=== PATIENT | female | born 1990 | race American Indian/Alaskan Native ===

== ENCOUNTER 2017-10-22 13:30 | Outpatient (CLI) | payer MEDICAID ==
[2017-10-22 14:45] LABS: Hematocrit 32.9 % (30.3-42.9); Hemoglobin 10.9 gm/dl (10.1-14.3); Mean Corpuscular HGB Conc 33 % (30-34); Mean Corpuscular Hemoglobin 29 pg (28-32); Mean Corpuscular Volume 87 fl (79-97); Platelet Count 301 K/mm3 (140-440); Red Blood Count 3.79 M/mm3 (3.65-5.03); Red Cell Distribution Width 14.2 % (13.2-15.2)
[2017-10-22 14:49] LABS: Bilirubin,Urine NEG (Negative); Blood,Urine NEG (Negative); Color,Urine Yellow (Yellow); Mucus,Urine FEW /HPF; Urobilinogen,Urine < 2.0 mg/dL (<2.0)
[2017-10-22 15:11] LABS: Alanine Aminotransferase 19 units/L (7-56); Uric Acid 5.3 mg/dL (3.5-7.6)
[2017-10-22 16:49] VITALS: BP 130/69
--- NOTE | 2017-10-22 20:25 | Ultrasound Report ---
FINAL REPORT EXAM: US OB LIMITED HISTORY: ALEKSANDRA; NON REACTIVE NST TECHNIQUE: Ultrasound biophysical profile PRIORS: None. FINDINGS: Single live intrauterine gestation is present with heart rate of 149 beats per minute Biophysical profile was performed respiratory motion 2 Body movement 2 tone 2 Amniotic fluid volume 2 Total 01/29 The amniotic fluid index is 20 centimeters Impression Normal biophysical profile 01/29
--- NOTE | 2017-10-22 20:26 | Ultrasound Report ---
FINAL REPORT EXAM: US OB BPP WO NON-STRESS HISTORY: ALEKSANDRA; NON REACTIVE NST TECHNIQUE: Ultrasound obstetrical limited PRIORS: None. FINDINGS: Single live intrauterine gestation present in cephalic presentation Amniotic fluid index is 20 centimeters cardiac activity is present with heart rate of 149 beats per minute IMPRESSION: Single intrauterine gestation cephalic position Normal amniotic fluid index 20 centimeters
== END 2017-10-22 17:15 | disposition home or self-care (01) ==
LOC: TRG 13:30
PROVIDERS: ATTEND Obstetrics & Gynecology
DX: O47.1 False labor at or after 37 completed weeks of gestation (principal); Z3A.37 37 weeks gestation of pregnancy
CPT/HCPCS: 36415; 59025; 76815; 76819; 81001; 82565; 83615; 84450; 84460; 84550; 85027

== ENCOUNTER 2017-11-14 17:58 | Inpatient (IN) | payer MEDICAID ==
[2017-11-14] MEDS ORDERED: PHENERGAN PR PRN (21:19)
[2017-11-14] MEDS ORDERED: MINERAL OIL PO PRN (21:19)
[2017-11-14] MEDS ORDERED: NUBAIN IV PRN (21:19)
[2017-11-14] MEDS ORDERED: ZOFRAN IV PRN (21:19)
[2017-11-14] MEDS ORDERED: STADOL IV PRN (21:19)
[2017-11-14] MEDS ORDERED: NARCAN 0.4 MG/1 ML IV PRN (21:19)
[2017-11-14] MEDS ORDERED: BRETHINE SUB-Q PRN (21:19)
[2017-11-14] MEDS ORDERED: XYLOCAINE 2% INFILTRATI ONE (21:19)
[2017-11-14] MEDS ORDERED: ePHEDrine SULFATE IV PRN (21:19)
[2017-11-14] MEDS ORDERED: BRETHINE IVP PRN (21:19)
[2017-11-14] MEDS ORDERED: CERVIDIL VG ONE (21:19)
[2017-11-14] MEDS ORDERED: PHENERGAN PO PRN (21:19)
--- NOTE | 2017-11-14 21:32 | History and Physical Report ---
History of Present Illness Date of examination: 11/14/17 Date of admission: 11/14/17 17:58 Chief complaint: Oligohydramnios, elevated BP's History of present illness: Patient presented to the office for routine visit, BP noted 140/90, and ALEKSANDRA 5.48 , vtx. She had a nml evaluation for PreE earlier this month Past History : 1 Para: 0 Past Medical History: Negative Past Medical History Past Surgical History: Negative Past Surgical History Past Medical History Surgery (Non-rug scratcher): Negative Past Surgical History Abnormal PAP: negative NORMA Exposure: negative Infertility: negative Uterine Anomaly: negative Uterine Surgery (not C/S): negative Other Gynecologic Problems: negative Infection History Hx of STD: none HIV Risk Eval: low risk Personal hx. of genital herpes: no Partner hx. of genital herpes: no Rash, Viral, or Febrile illness since last LMP? no Varicella/Chicken Pox Status: Previous Disease TB Risk: no Genetic History Congenital Heart Defect: Mom: no Dad: no Bradley Disease: Mom: no Dad: no Thalassemia Mom: no Dad: no Neural Tube Defect Mom: no Dad: no Down's Syndrome Mom: no Dad: no Dung-Sachs Mom: no Dad: no Sickle Cell Disease/Trait Mom: no Dad: no Hemophilia Mom: no Dad: no Muscular Dystrophy Mom: no Dad: no Cystic Fibrosis Mom: no Dad: no Derrick Chorea Mom: no Dad: no Mental Retardation Mom: no Dad: no Fragile X Mom: no Dad: no Other Genetic/Chromosomal Disorder Mom: no Dad: no Child w/other defect Mom: no Dad: no Comments/Counseling: pt's father has SCT+ Enviromental Exposures Xray Exposure: no Medication, drug, or alcohol use since LMP: no Chemical/Other Exposure: no Exposure to Cat Liter: no Hx of Parvovirus (Fifth Disease): no Occupational Exposure to Children: none Active Medications (reviewed today): None Current Allergies (reviewed today): No known allergies Past History - Obstetrical History Expected Date of Delivery: 11/08/17 Actual Gestation: 40 Week(s) 6 Day(s) : 1 Medications and Allergies Allergies Allergy/AdvReac Type Severity Reaction Status Date / Time pollen extracts Allergy Itching Verified 10/22/17 14:22 Review of Systems All systems: negative - Vital Signs Vital signs: Vital Signs Pulse Pulse Ox 96 H 98 11/14/17 18:28 11/14/17 18:28 Temp Pulse Resp BP Pulse Ox 99.2 F 93 H 18 183/100 99 11/14/17 20:10 11/14/17 21:29 11/14/17 20:10 11/14/17 21:21 11/14/17 21:29 - Physical Exam Breasts: Positive: deferred Lungs: Positive: Normal air movement Abdomen: Positive: other (obese). Negative: tenderness Genitourinary (Female): Positive: normal external genitalia, normal perenium Vulva: both: normal Uterus: Positive: enlarged. Negative: tender Extremities: Positive: edema (2+) Deep Tendon Reflex Grade: Normal but brisk +3 - Obstetrical FHR: category 2 Uterine Contraction Monitor Mode: External Cervical Dilatation: 0 Cervical Effacement Percentage: 0 station: -4, cephalic by US in office Results All other labs normal. Ultrasound: image reviewed (from office) Assessment and Plan - Patient Problems (1) 40 weeks gestation of Current Visit: Yes Status: Acute (2) Oligohydramnios Current Visit: Yes Status: Acute Qualifiers: Fetus number: single or unspecified fetus Plan to address problem: Serial induction explained, questions answered. She voiced understanding and agrees with plan of care (3) Elevated blood pressure affecting in third trimester, antepartum Current Visit: Yes Status: Acute (4) GBS carrier Current Visit: Yes Status: Acute
[2017-11-14 21:57] LABS: Hematocrit 33.4 % (30.3-42.9); Hemoglobin 11.1 gm/dl (10.1-14.3); Mean Corpuscular HGB Conc 33 % (30-34); Mean Corpuscular Hemoglobin 28 pg (28-32); Mean Corpuscular Volume 85 fl (79-97); Platelet Count 315 K/mm3 (140-440); Red Blood Count 3.93 M/mm3 (3.65-5.03); Red Cell Distribution Width 14.7 % (13.2-15.2)
[2017-11-14] MEDS ORDERED: LACTATED RINGERS 1,000 ML IV SCH (22:00)
[2017-11-14] MEDS ORDERED: PITOCin/NS 20 UNIT/1000ML DRIP 20 UNITS/1,000 ML BAG IV SCH (22:00)
[2017-11-15] MEDS: SUBLIMAZE IV PRN ×2 (04:38→08:15)
[2017-11-15] MEDS: LACTATED RINGERS 1,000 ML IV SCH ×2 (08:15→19:41)
--- NOTE | 2017-11-15 08:20 | Progress Note ---
Assessment and Plan A: IOL @ 41 weeks for oligo and elevated b/p, pre-e labs pending. Pt denies MCCALL, visual changes or epigastric pain. P: remove cervidil @ 11, if cat 1 and b/p NL may shower and eat regular lunch. Will reassess next step in serial IOL. Discussed serial IOL expectations with patient. - Patient Problems (1) 41 weeks gestation of Current Visit: Yes Status: Acute (2) Elevated blood pressure affecting in third trimester, antepartum Current Visit: Yes Status: Acute (3) GBS carrier Current Visit: Yes Status: Acute (4) Oligohydramnios Current Visit: Yes Status: Acute Qualifiers: Fetus number: single or unspecified fetus Subjective - Subjective Date of service: 11/15/17 Principal diagnosis: IUP @ 41+0, IOL for oligo, elevated b/p Patient reports: movement normal, contractions (cramping), no loss of fluid, no vaginal bleeding, no other (no MCCALL, visual changes or epigastric pain) Objective - Vital Signs Vital Signs: Vital Signs - 12hr 11/14/17 11/14/17 11/14/17 20:23 20:28 20:32 Temperature Pulse Rate 95 H 102 H 97 H Respiratory Rate Blood Pressure 151/96 O2 Sat by Pulse 99 99 Oximetry 11/14/17 11/14/17 11/14/17 20:33 20:38 20:43 Temperature Pulse Rate 93 H 102 H 101 H Respiratory Rate Blood Pressure O2 Sat by Pulse 99 98 98 Oximetry 11/14/17 11/14/17 11/14/17 20:48 20:53 20:58 Temperature Pulse Rate 89 102 H 91 H Respiratory Rate Blood Pressure O2 Sat by Pulse 99 98 98 Oximetry 11/14/17 11/14/17 11/14/17 21:03 21:08 21:13 Temperature Pulse Rate 95 H 112 H 105 H Respiratory Rate Blood Pressure O2 Sat by Pulse 98 99 97 Oximetry 11/14/17 11/14/17 11/14/17 21:19 21:21 21:24 Temperature Pulse Rate 107 H 93 H 101 H Respiratory Rate Blood Pressure 183/100 O2 Sat by Pulse 99 99 Oximetry 11/14/17 11/14/17 11/14/17 21:29 21:34 21:42 Temperature Pulse Rate 93 H 89 91 H Respiratory Rate Blood Pressure O2 Sat by Pulse 99 100 100 Oximetry 11/14/17 11/14/17 11/14/17 21:43 21:47 21:52 Temperature Pulse Rate 90 94 H 98 H Respiratory Rate Blood Pressure 159/93 149/76 O2 Sat by Pulse 100 100 Oximetry 11/14/17 11/14/17 11/14/17 21:57 22:02 22:07 Temperature Pulse Rate 102 H 99 H 94 H Respiratory Rate Blood Pressure O2 Sat by Pulse 100 100 100 Oximetry 11/14/17 11/14/17 11/14/17 22:08 22:12 22:17 Temperature Pulse Rate 93 H 91 H 99 H Respiratory Rate Blood Pressure 159/96 O2 Sat by Pulse 98 99 Oximetry 11/14/17 11/14/17 11/14/17 22:22 22:27 22:32 Temperature Pulse Rate 89 89 92 H Respiratory Rate Blood Pressure 172/82 O2 Sat by Pulse 99 100 100 Oximetry 11/14/17 11/14/17 11/14/17 22:37 22:38 22:42 Temperature Pulse Rate 92 H 87 90 Respiratory Rate Blood Pressure 176/90 O2 Sat by Pulse 99 100 Oximetry 11/14/17 11/14/17 11/14/17 22:47 23:51 23:56 Temperature Pulse Rate 97 H 95 H 86 Respiratory Rate Blood Pressure O2 Sat by Pulse 98 100 100 Oximetry 11/15/17 11/15/17 11/15/17 00:01 00:06 00:11 Temperature Pulse Rate 85 99 H 83 Respiratory Rate Blood Pressure O2 Sat by Pulse 100 100 100 Oximetry 11/15/17 11/15/17 11/15/17 00:16 00:21 00:26 Temperature Pulse Rate 102 H 82 84 Respiratory Rate Blood Pressure O2 Sat by Pulse 100 100 99 Oximetry 11/15/17 11/15/17 11/15/17 00:31 00:36 00:41 Temperature Pulse Rate 87 94 H 101 H Respiratory Rate Blood Pressure O2 Sat by Pulse 98 99 99 Oximetry 11/15/17 11/15/17 11/15/17 00:46 00:51 00:52 Temperature Pulse Rate 92 H 89 86 Respiratory Rate Blood Pressure 114/57 O2 Sat by Pulse 100 100 Oximetry 11/15/17 11/15/17 11/15/17 00:56 01:01 01:16 Temperature Pulse Rate 90 102 H 96 H Respiratory Rate Blood Pressure O2 Sat by Pulse 100 100 99 Oximetry 11/15/17 11/15/17 11/15/17 01:21 01:23 01:26 Temperature Pulse Rate 92 H 92 H 95 H Respiratory Rate Blood Pressure 157/86 O2 Sat by Pulse 99 100 Oximetry 11/15/17 11/15/17 11/15/17 01:31 01:36 01:41 Temperature Pulse Rate 92 H 93 H 100 H Respiratory Rate Blood Pressure O2 Sat by Pulse 99 100 99 Oximetry 11/15/17 11/15/17 11/15/17 01:46 01:51 02:03 Temperature Pulse Rate 99 H 109 H 98 H Respiratory Rate Blood Pressure O2 Sat by Pulse 100 99 100 Oximetry 11/15/17 11/15/17 11/15/17 02:08 02:13 02:18 Temperature Pulse Rate 91 H 98 H 92 H Respiratory Rate Blood Pressure O2 Sat by Pulse 100 100 100 Oximetry 11/15/17 11/15/17 11/15/17 02:23 02:28 02:33 Temperature Pulse Rate 98 H 105 H 104 H Respiratory Rate Blood Pressure O2 Sat by Pulse 99 100 100 Oximetry 11/15/17 11/15/17 11/15/17 02:38 02:43 02:48 Temperature Pulse Rate 95 H 92 H 95 H Respiratory Rate Blood Pressure O2 Sat by Pulse 100 100 100 Oximetry 11/15/17 11/15/17 11/15/17 02:53 02:58 03:03 Temperature Pulse Rate 93 H 101 H 100 H Respiratory Rate Blood Pressure O2 Sat by Pulse 100 100 100 Oximetry 11/15/17 11/15/17 11/15/17 03:07 03:19 03:24 Temperature Pulse Rate 91 H 90 96 H Respiratory Rate Blood Pressure 142/72 O2 Sat by Pulse 99 99 Oximetry 11/15/17 11/15/17 11/15/17 03:29 03:34 03:39 Temperature Pulse Rate 106 H 92 H 98 H Respiratory Rate Blood Pressure O2 Sat by Pulse 99 99 98 Oximetry 11/15/17 11/15/17 11/15/17 03:44 03:49 03:54 Temperature Pulse Rate 94 H 103 H 102 H Respiratory Rate Blood Pressure O2 Sat by Pulse 100 100 99 Oximetry 11/15/17 11/15/17 11/15/17 03:59 04:38 04:44 Temperature Pulse Rate 97 H 102 H Respiratory 18 Rate Blood Pressure O2 Sat by Pulse 99 99 Oximetry 11/15/17 11/15/17 11/15/17 04:49 04:54 04:59 Temperature Pulse Rate 109 H 95 H 101 H Respiratory Rate Blood Pressure O2 Sat by Pulse 97 98 99 Oximetry 11/15/17 11/15/17 11/15/17 05:04 05:06 05:09 Temperature Pulse Rate 93 H 98 H 99 H Respiratory Rate Blood Pressure 138/71 O2 Sat by Pulse 98 99 Oximetry 11/15/17 11/15/17 11/15/17 05:14 05:19 05:24 Temperature Pulse Rate 93 H 100 H 101 H Respiratory Rate Blood Pressure O2 Sat by Pulse 99 99 98 Oximetry 11/15/17 11/15/17 11/15/17 05:29 05:34 05:39 Temperature Pulse Rate 102 H 101 H 101 H Respiratory Rate Blood Pressure O2 Sat by Pulse 98 98 98 Oximetry 11/15/17 11/15/17 11/15/17 05:44 05:49 08:08 Temperature 99.0 F Pulse Rate 107 H 101 H Respiratory 18 Rate Blood Pressure O2 Sat by Pulse 99 99 Oximetry 11/15/17 08:11 Temperature Pulse Rate 110 H Respiratory Rate Blood Pressure 152/80 O2 Sat by Pulse Oximetry - Exam Breasts: normal Cardiovascular: Regular rate Lungs: Clear to auscultation, Normal air movement Abdomen: Present: normal appearance, soft Vulva: both: normal Uterus: Present: normal FHR: auscultation normal, category 1 Uterine Contraction Monitor Mode: External Uterine Contraction Pattern: Irregular Uterine Tone Measurement Phase: Resting Uterine Contraction Intensity: Mild Extremities: normal Deep Tendon Reflex Grade: Normal +2 - Labs Labs: Laboratory Results - last 24 hr 11/14/17 11/14/17 20:11 21:42 WBC 9.7 RBC 3.93 Hgb 11.1 Hct 33.4 MCV 85 MCH 28 MCHC 33 RDW 14.7 Plt Count 315 Blood Type O POSITIVE Antibody Screen Negative
[2017-11-15 08:31] LABS: Alanine Aminotransferase 23 units/L (7-56); Uric Acid 6.4 mg/dL (3.5-7.6)
--- NOTE | 2017-11-15 09:49 | Event Note ---
Date: 11/15/17 Tracing reviewed currently with acecels that are 10x10 after getting IV pain meds. pt having regular contractions but states they are not that painful. I d/ w serial IOL, failed IOL and need for c/s delivery. I also d/w need for c/s due to tracing not being reassring should that occur. Finally I d/w that her bps are labile but not persistently elevated and that her PIH labs are normal. At best she has gestational hypertension and treatment is delivery which we are doing. However, should be become persistently 160/105 range will proceed with magnesium and treated for pending per E. Pt expressed understanding and questions were addressed and answered. Cervidil to be removed between 10-11am. Will re evaluated at this time and proceed with serial IOL. 15 min spent at bedside discussing plan of care with pt.
[2017-11-15] MEDS ORDERED: POLYCILLIN/NS 2 GM/100 ML 2 GM/100 ML BAG IV ONE (10:00)
[2017-11-15 10:52] LABS: Bacteria,Urine 2+ /HPF (Negative); Bilirubin,Urine NEG (Negative); Blood,Urine SM (Negative); Color,Urine Yellow (Yellow); Hyaline Casts,Urine 2 /LPF; Mucus,Urine 1+ /HPF; Urobilinogen,Urine < 2.0 mg/dL (<2.0)
[2017-11-15 10:55] LABS: Protein,Urine >500 mg/dL (Negative)
--- NOTE | 2017-11-15 12:39 | Event Note ---
Date: 11/15/17 reviewed plan of care with patient and family, will do low dose pitocin today and plan to repeat cervidil tonight. pt sitting up with regular diet. all questions addressed. Dr. Treviño aware.
--- NOTE | 2017-11-15 12:53 | Event Note ---
Date: 11/15/17 Pt noted to have >500 on the UA this combined with the elevation in blood pressures gives dx of mild pre E. Will plan to start magnesium when pt is in active labor or if bp consistently > 160/105. Will advise pt of new dx and plan of care.
[2017-11-15] MEDS: PITOCin/NS 30 UNIT/500ML 30 UNITS/500 ML BAG IV SCH ×3 (14:00→14:55)
[2017-11-15] MEDS ORDERED: AMPICILLIN/NS 1 GM/50 ML 1 GM/50 ML BAG IV SCH (14:00)
--- NOTE | 2017-11-15 17:59 | Progress Note ---
Assessment and Plan no ctx/cramping with pitocin. Will d/c, allow dinner and replace cervidil tonight. Plan of care reviewed with patient.opportunity for questions provided, all questions addressed. - Patient Problems (1) 41 weeks gestation of Current Visit: Yes Status: Acute (2) Elevated blood pressure affecting in third trimester, antepartum Current Visit: No Status: Acute (3) GBS carrier Current Visit: Yes Status: Acute (4) Oligohydramnios Current Visit: Yes Status: Acute Qualifiers: Fetus number: single or unspecified fetus Subjective - Subjective Date of service: 11/15/17 Principal diagnosis: IUP @ 41+0, IOL for oligo, elevated b/p Patient reports: movement normal, contractions (cramping), no loss of fluid, no vaginal bleeding, no other (no MCCALL, visual changes or epigastric pain) Objective - Vital Signs Vital Signs: Vital Signs - 12hr 11/15/17 11/15/17 11/15/17 08:08 08:11 09:07 Temperature 99.0 F Pulse Rate 110 H 105 H Respiratory 18 Rate Blood Pressure 152/80 146/78 O2 Sat by Pulse Oximetry 11/15/17 11/15/17 11/15/17 10:07 10:39 11:06 Temperature Pulse Rate 110 H 107 H 108 H Respiratory Rate Blood Pressure 187/86 141/77 149/74 O2 Sat by Pulse Oximetry 11/15/17 11/15/17 11/15/17 14:21 14:26 14:31 Temperature Pulse Rate 90 99 H 94 H Respiratory Rate Blood Pressure 144/71 O2 Sat by Pulse 99 98 98 Oximetry 11/15/17 11/15/17 11/15/17 14:36 14:41 14:46 Temperature Pulse Rate 92 H 91 H 93 H Respiratory Rate Blood Pressure O2 Sat by Pulse 98 99 97 Oximetry 11/15/17 11/15/17 11/15/17 14:51 14:56 15:01 Temperature Pulse Rate 95 H 94 H 90 Respiratory Rate Blood Pressure 122/60 O2 Sat by Pulse 98 97 97 Oximetry 11/15/17 11/15/17 11/15/17 15:06 15:11 15:16 Temperature Pulse Rate 91 H 92 H 99 H Respiratory Rate Blood Pressure O2 Sat by Pulse 97 98 99 Oximetry 11/15/17 11/15/17 11/15/17 15:21 15:26 15:36 Temperature Pulse Rate 91 H 91 H 98 H Respiratory Rate Blood Pressure O2 Sat by Pulse 99 97 99 Oximetry 11/15/17 11/15/17 11/15/17 15:41 15:46 15:51 Temperature Pulse Rate 102 H 88 90 Respiratory Rate Blood Pressure O2 Sat by Pulse 98 98 98 Oximetry 11/15/17 11/15/17 11/15/17 15:52 15:56 16:01 Temperature Pulse Rate 86 88 95 H Respiratory Rate Blood Pressure 141/74 O2 Sat by Pulse 99 99 Oximetry 11/15/17 11/15/17 11/15/17 16:06 16:11 16:16 Temperature Pulse Rate 103 H 88 94 H Respiratory Rate Blood Pressure O2 Sat by Pulse 99 98 99 Oximetry 11/15/17 11/15/17 11/15/17 16:21 16:26 16:31 Temperature Pulse Rate 105 H 97 H 105 H Respiratory Rate Blood Pressure 141/77 O2 Sat by Pulse 99 99 98 Oximetry 11/15/17 11/15/17 11/15/17 16:36 16:41 16:46 Temperature Pulse Rate 95 H 113 H 99 H Respiratory Rate Blood Pressure O2 Sat by Pulse 99 99 98 Oximetry 11/15/17 11/15/17 11/15/17 16:51 16:52 16:56 Temperature Pulse Rate 102 H 93 H 97 H Respiratory Rate Blood Pressure 153/105 O2 Sat by Pulse 99 99 Oximetry 11/15/17 11/15/17 11/15/17 17:01 17:06 17:11 Temperature Pulse Rate 97 H 99 H 96 H Respiratory Rate Blood Pressure O2 Sat by Pulse 99 99 99 Oximetry 11/15/17 11/15/17 11/15/17 17:16 17:21 17:26 Temperature Pulse Rate 100 H 101 H 94 H Respiratory Rate Blood Pressure 154/72 O2 Sat by Pulse 99 99 99 Oximetry 11/15/17 11/15/17 11/15/17 17:31 17:36 17:41 Temperature Pulse Rate 104 H 86 96 H Respiratory Rate Blood Pressure O2 Sat by Pulse 99 99 99 Oximetry 11/15/17 11/15/17 11/15/17 17:46 17:51 17:56 Temperature Pulse Rate 93 H 86 99 H Respiratory Rate Blood Pressure 162/98 O2 Sat by Pulse 98 99 99 Oximetry - Exam Breasts: normal Cardiovascular: Regular rate Lungs: Clear to auscultation Abdomen: Present: normal appearance, soft Vulva: both: normal Uterus: Present: normal FHR: auscultation normal, category 1 Uterine Contraction Monitor Mode: External Cervical Dilatation: 0 Cervical Effacement Percentage: 0 station: -3 Uterine Contraction Pattern: Absent Uterine Tone Measurement Phase: Resting - Labs Labs: Abnormal Labs 11/15/17 11/15/17 07:45 10:25 Creatinine 0.5 L Lactate Dehydrogenase 201 H Urine WBC (Auto) 19.0 H U Epithel Cells (Auto) 23.0 H Laboratory Results - last 24 hr 11/14/17 11/14/17 11/14/17 20:11 21:42 21:42 WBC 9.7 RBC 3.93 Hgb 11.1 Hct 33.4 MCV 85 MCH 28 MCHC 33 RDW 14.7 Plt Count 315 Creatinine Estimated GFR Uric Acid AST ALT Lactate Dehydrogenase Urine Color Urine Turbidity Urine pH Ur Specific [place] Urine Protein Urine Glucose (UA) Urine Ketones Urine Blood Urine Nitrite Urine Bilirubin Urine Urobilinogen Ur Leukocyte Esterase Urine WBC (Auto) Urine RBC (Auto) U Epithel Cells (Auto) Urine Bacteria (Auto) Hyaline Casts Urine Mucus Urine Yeast (Budding) RPR Nonreactive Blood Type O POSITIVE Antibody Screen Negative 11/15/17 11/15/17 07:45 10:25 WBC RBC Hgb Hct MCV MCH MCHC RDW Plt Count Creatinine 0.5 L Estimated GFR > 60 Uric Acid 6.4 AST 28 ALT 23 Lactate Dehydrogenase 201 H Urine Color Yellow Urine Turbidity Cloudy Urine pH 5.0 Ur Specific [place] 1.025 Urine Protein >500 Urine Glucose (UA) Neg Urine Ketones Neg Urine Blood Sm Urine Nitrite Neg Urine Bilirubin Neg Urine Urobilinogen < 2.0 Ur Leukocyte Esterase Sm Urine WBC (Auto) 19.0 H Urine RBC (Auto) 11.0 U Epithel Cells (Auto) 23.0 H Urine Bacteria (Auto) 2+ Hyaline Casts 2 Urine Mucus 1+ Urine Yeast (Budding) 2+ RPR Blood Type Antibody Screen
[2017-11-15] MEDS ORDERED: CERVIDIL VG NR (18:02)
[2017-11-15] MEDS ORDERED: AMBIEN PO PRN (20:57)
[2017-11-15] MEDS ORDERED: CERVIDIL VG ONE (21:05)
[2017-11-16] MEDS: SUBLIMAZE IV PRN (02:21)
[2017-11-16] MEDS: LACTATED RINGERS 1,000 ML IV SCH ×2 (04:14→12:38)
[2017-11-16] MEDS ORDERED: MAGNESIUM SULFATE 4GM/100ML 4 GM/100 ML BAG IV ONE (06:50)
[2017-11-16] MEDS ORDERED: APRESOLINE IV ONE ×2 (06:59→23:19)
--- NOTE | 2017-11-16 07:22 | Progress Note ---
<MONA KRAUSE - Last Filed: 11/16/17 07:17> Assessment and Plan 27yo @ 41w1d here for IOL 3rd day. Cervidil removed. MGSO4 started. Will start pitocin per protocol. Schofield placed Strict I&O. All orders in EMR - Patient Problems (1) 41 weeks gestation of Onset Date: ~11/16/17 Current Visit: Yes Status: Acute Plan to address problem: Cervidil removed. Will start pitocin per protocol. Discussed POC with pt, reviewed nature of serial IOL, and possibility of section. All questions were addressed and answered. aware of pt. (2) Pre-eclampsia Onset Date: ~11/16/17 Current Visit: Yes Status: Acute Qualifiers: Trimester: third trimester Qualified Code(s): O14.93 - Unspecified pre- eclampsia, third trimester Plan to address problem: Noted BP trending up Discussed POC with . Will start MGSO4. Orders in EMR. Pt aware of plan All questions addressed. Subjective - Subjective Date of service: 11/16/17 Principal diagnosis: IUP @ 41+1, IOL for oligo, elevated b/p Patient reports: movement normal, contractions (cramping), no loss of fluid, no vaginal bleeding, no other (no MCCALL, visual changes or epigastric pain) Objective - Vital Signs Vital Signs: Vital Signs - 12hr 11/15/17 11/15/17 11/15/17 20:40 21:05 21:43 Pulse Rate 100 H 90 100 H Blood Pressure 166/91 123/74 139/67 O2 Sat by Pulse Oximetry 11/15/17 11/16/17 11/16/17 23:52 00:27 00:28 Pulse Rate 86 96 H 99 H Blood Pressure 164/88 153/91 O2 Sat by Pulse 98 Oximetry 11/16/17 11/16/17 11/16/17 00:33 00:38 00:43 Pulse Rate 93 H 90 97 H Blood Pressure O2 Sat by Pulse 99 100 100 Oximetry 11/16/17 11/16/17 11/16/17 00:48 00:53 00:58 Pulse Rate 96 H 96 H 94 H Blood Pressure O2 Sat by Pulse 100 100 100 Oximetry 11/16/17 11/16/17 11/16/17 01:03 01:08 01:13 Pulse Rate 98 H 100 H 111 H Blood Pressure O2 Sat by Pulse 100 100 100 Oximetry 11/16/17 11/16/17 11/16/17 01:15 01:18 01:23 Pulse Rate 114 H 99 H 111 H Blood Pressure 132/86 O2 Sat by Pulse 100 100 Oximetry 11/16/17 11/16/17 11/16/17 01:28 01:33 01:34 Pulse Rate 96 H 102 H 95 H Blood Pressure O2 Sat by Pulse 100 100 66 L Oximetry 11/16/17 11/16/17 11/16/17 01:38 01:43 02:18 Pulse Rate 108 H 106 H 103 H Blood Pressure 154/70 O2 Sat by Pulse 99 100 Oximetry 11/16/17 11/16/17 11/16/17 02:43 02:45 04:15 Pulse Rate 102 H 97 H 100 H Blood Pressure 147/82 148/81 173/94 O2 Sat by Pulse Oximetry 11/16/17 11/16/17 11/16/17 04:23 04:28 04:33 Pulse Rate 95 H 103 H 104 H Blood Pressure O2 Sat by Pulse 98 97 100 Oximetry 11/16/17 11/16/17 11/16/17 04:38 05:48 05:55 Pulse Rate 95 H 109 H 107 H Blood Pressure 144/85 149/105 O2 Sat by Pulse 100 Oximetry - Exam Breasts: deferred Cardiovascular: Regular rate Lungs: Normal air movement Abdomen: Present: normal appearance, soft, normal bowel sounds. Absent: distention, tenderness Uterus: Present: normal FHR: auscultation normal, category 1 (minimal variability) Uterine Contraction Monitor Mode: External Cervical Dilatation: 0 (soft) Cervical Effacement Percentage: 0 station: -3 Uterine Contraction Pattern: Irregular Uterine Tone Measurement Phase: Resting Uterine Contraction Intensity: Mild Extremities: edema Deep Tendon Reflex Grade: Normal +2 - Labs Labs: Abnormal Labs 11/15/17 11/15/17 07:45 10:25 Creatinine 0.5 L Lactate Dehydrogenase 201 H Urine WBC (Auto) 19.0 H U Epithel Cells (Auto) 23.0 H Laboratory Results - last 24 hr 11/14/17 11/15/17 11/15/17 21:42 07:45 10:25 Creatinine 0.5 L Estimated GFR > 60 Uric Acid 6.4 AST 28 ALT 23 Lactate Dehydrogenase 201 H Urine Color Yellow Urine Turbidity Cloudy Urine pH 5.0 Ur Specific [place] 1.025 Urine Protein >500 Urine Glucose (UA) Neg Urine Ketones Neg Urine Blood Sm Urine Nitrite Neg Urine Bilirubin Neg Urine Urobilinogen < 2.0 Ur Leukocyte Esterase Sm Urine WBC (Auto) 19.0 H Urine RBC (Auto) 11.0 U Epithel Cells (Auto) 23.0 H Urine Bacteria (Auto) 2+ Hyaline Casts 2 Urine Mucus 1+ Urine Yeast (Budding) 2+ RPR Nonreactive <THERON JO - Last Filed: 11/16/17 10:18> Assessment and Plan She's received cervidil x2, this is day 2 of pitocin. Good UO. Continue close observation and IOL. 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 Objective - Vital Signs Vital Signs: Vital Signs - 12hr 11/15/17 11/16/17 11/16/17 23:52 00:27 00:28 Pulse Rate 86 96 H 99 H Blood Pressure 164/88 153/91 O2 Sat by Pulse 98 Oximetry 11/16/17 11/16/17 11/16/17 00:33 00:38 00:43 Pulse Rate 93 H 90 97 H Blood Pressure O2 Sat by Pulse 99 100 100 Oximetry 11/16/17 11/16/17 11/16/17 00:48 00:53 00:58 Pulse Rate 96 H 96 H 94 H Blood Pressure O2 Sat by Pulse 100 100 100 Oximetry 11/16/17 11/16/17 11/16/17 01:03 01:08 01:13 Pulse Rate 98 H 100 H 111 H Blood Pressure O2 Sat by Pulse 100 100 100 Oximetry 11/16/17 11/16/17 11/16/17 01:15 01:18 01:23 Pulse Rate 114 H 99 H 111 H Blood Pressure 132/86 O2 Sat by Pulse 100 100 Oximetry 11/16/17 11/16/17 11/16/17 01:28 01:33 01:34 Pulse Rate 96 H 102 H 95 H Blood Pressure O2 Sat by Pulse 100 100 66 L Oximetry 11/16/17 11/16/17 11/16/17 01:38 01:43 02:18 Pulse Rate 108 H 106 H 103 H Blood Pressure 154/70 O2 Sat by Pulse 99 100 Oximetry 11/16/17 11/16/17 11/16/17 02:43 02:45 04:15 Pulse Rate 102 H 97 H 100 H Blood Pressure 147/82 148/81 173/94 O2 Sat by Pulse Oximetry 11/16/17 11/16/17 11/16/17 04:23 04:28 04:33 Pulse Rate 95 H 103 H 104 H Blood Pressure O2 Sat by Pulse 98 97 100 Oximetry 11/16/17 11/16/17 11/16/17 04:38 05:48 05:55 Pulse Rate 95 H 109 H 107 H Blood Pressure 144/85 149/105 O2 Sat by Pulse 100 Oximetry 11/16/17 11/16/17 11/16/17 07:24 07:55 08:14 Pulse Rate 104 H 110 H 101 H Blood Pressure 148/97 158/74 147/92 O2 Sat by Pulse Oximetry 11/16/17 11/16/17 11/16/17 08:54 09:40 10:01 Pulse Rate 101 H 104 H 96 H Blood Pressure 143/81 172/92 O2 Sat by Pulse 99 Oximetry 11/16/17 10:06 Pulse Rate 101 H Blood Pressure O2 Sat by Pulse 98 Oximetry - Exam Lungs: Clear to auscultation, Normal air movement - Labs Labs: Abnormal Labs 11/15/17 11/15/17 07:45 10:25 Creatinine 0.5 L Lactate Dehydrogenase 201 H Urine WBC (Auto) 19.0 H U Epithel Cells (Auto) 23.0 H Laboratory Results - last 24 hr 11/14/17 11/15/17 21:42 10:25 Urine Color Yellow Urine Turbidity Cloudy Urine pH 5.0 Ur Specific [place] 1.025 Urine Protein >500 Urine Glucose (UA) Neg Urine Ketones Neg Urine Blood Sm Urine Nitrite Neg Urine Bilirubin Neg Urine Urobilinogen < 2.0 Ur Leukocyte Esterase Sm Urine WBC (Auto) 19.0 H Urine RBC (Auto) 11.0 U Epithel Cells (Auto) 23.0 H Urine Bacteria (Auto) 2+ Hyaline Casts 2 Urine Mucus 1+ Urine Yeast (Budding) 2+ RPR Nonreactive
[2017-11-16] MEDS ORDERED: PITOCin/NS 30 UNIT/500ML 30 UNITS/500 ML BAG IV SCH (08:00)
[2017-11-16] MEDS: MAGNESIUM SULFATE 40GM/1000ML 40 GM/1,000 ML BAG IV SCH (08:16)
--- NOTE | 2017-11-16 15:37 | Event Note ---
Date: 11/16/17 (second day of pitocin) pt has been on 20mu pitocin today. ctx irreg pattern. pt has been sleeping. Cat 1 FHT. BP 150-140/80-70. MGSO4 continues 2 gm/hr. Consulted with Dr Benjamin Will stop pitocin @ 1700. Allow dinner. PM care Then low dose pitocin overnight. RN aware of plan. Orders in EMR.
[2017-11-16] MEDS: PITOCin/NS 30 UNIT/500ML 30 UNITS/500 ML BAG IV SCH ×3 (20:00→23:22)
[2017-11-16] MEDS ORDERED: TYLENOL PO PRN (23:21)
[2017-11-17] MEDS: PITOCin/NS 30 UNIT/500ML 30 UNITS/500 ML BAG IV SCH (02:07)
--- NOTE | 2017-11-17 05:01 | Progress Note ---
Assessment and Plan - Patient Problems (1) 41 weeks gestation of Onset Date: ~11/16/17 Current Visit: Yes Status: Acute Plan to address problem: Variable decels noted on strip. Pitocin off Pt sleeping soundly on her left side. Easily awaken. SVE closed, thick, OOP. Explained findings and concerns to pt. Made NPO for possible section this AM. Pt voiced understanding. aware of findings. (2) Pre-eclampsia Onset Date: ~11/16/17 Current Visit: Yes Status: Acute Qualifiers: Trimester: third trimester Qualified Code(s): O14.93 - Unspecified pre- eclampsia, third trimester Plan to address problem: BP 180/82 second dose of Hydralizine given. Subjective - Subjective Date of service: 11/17/17 (variable decels noted on strip) Principal diagnosis: IUP @ 41+2, IOL for oligo, elevated b/p Patient reports: movement normal, contractions (cramping), no loss of fluid, no vaginal bleeding, no other (no MCCALL, visual changes or epigastric pain) Objective - Vital Signs Vital Signs: Vital Signs - 12hr 11/16/17 11/16/17 11/16/17 17:14 17:22 17:54 Temperature 97.8 F Pulse Rate 100 H 103 H 109 H Respiratory 18 Rate Blood Pressure 154/81 150/82 Blood Pressure 154/81 [Left] O2 Sat by Pulse Oximetry 11/16/17 11/16/17 11/16/17 18:47 18:48 18:51 Temperature Pulse Rate 105 H 100 H 104 H Respiratory Rate Blood Pressure 171/90 168/91 Blood Pressure [Left] O2 Sat by Pulse 98 Oximetry 11/16/17 11/16/17 11/16/17 18:52 18:57 19:02 Temperature Pulse Rate 104 H 109 H 115 H Respiratory Rate Blood Pressure Blood Pressure [Left] O2 Sat by Pulse 97 97 98 Oximetry 11/16/17 11/16/17 11/16/17 19:07 19:12 19:17 Temperature Pulse Rate 113 H 116 H 115 H Respiratory Rate Blood Pressure Blood Pressure [Left] O2 Sat by Pulse 98 98 97 Oximetry 11/16/17 11/16/17 11/16/17 19:22 19:26 19:27 Temperature Pulse Rate 111 H 116 H 120 H Respiratory Rate Blood Pressure 160/104 Blood Pressure [Left] O2 Sat by Pulse 98 98 Oximetry 11/16/17 11/16/17 11/16/17 19:32 19:35 19:37 Temperature Pulse Rate 112 H 109 H 111 H Respiratory Rate Blood Pressure 169/80 Blood Pressure [Left] O2 Sat by Pulse 98 97 Oximetry 11/16/17 11/16/17 11/16/17 19:42 19:47 19:52 Temperature Pulse Rate 116 H 114 H 105 H Respiratory Rate Blood Pressure Blood Pressure [Left] O2 Sat by Pulse 98 98 98 Oximetry 11/16/17 11/16/17 11/16/17 19:57 20:00 20:02 Temperature 98.3 F Pulse Rate 114 H 104 H 117 H Respiratory 18 Rate Blood Pressure Blood Pressure 161/98 [Left] O2 Sat by Pulse 97 98 97 Oximetry 11/16/17 11/16/17 11/16/17 20:07 20:10 20:12 Temperature Pulse Rate 109 H 104 H 113 H Respiratory Rate Blood Pressure 161/98 Blood Pressure [Left] O2 Sat by Pulse 98 97 Oximetry 11/16/17 11/16/17 11/16/17 21:45 21:46 21:51 Temperature Pulse Rate 105 H 105 H 109 H Respiratory Rate Blood Pressure 170/84 Blood Pressure 170/84 [Left] O2 Sat by Pulse 97 97 Oximetry 11/16/17 11/16/17 11/16/17 21:56 22:01 22:06 Temperature Pulse Rate 108 H 105 H 108 H Respiratory Rate Blood Pressure Blood Pressure [Left] O2 Sat by Pulse 97 97 97 Oximetry 11/16/17 11/16/17 11/16/17 22:11 22:16 22:21 Temperature Pulse Rate 110 H 106 H 110 H Respiratory Rate Blood Pressure Blood Pressure [Left] O2 Sat by Pulse 97 98 96 Oximetry 11/16/17 11/16/17 11/16/17 22:24 22:26 22:31 Temperature Pulse Rate 107 H 107 H 104 H Respiratory Rate Blood Pressure 146/87 Blood Pressure [Left] O2 Sat by Pulse 93 97 97 Oximetry 11/16/17 11/16/17 11/16/17 22:51 22:56 23:01 Temperature Pulse Rate 103 H 101 H 104 H Respiratory Rate Blood Pressure Blood Pressure [Left] O2 Sat by Pulse 98 98 96 Oximetry 11/16/17 11/16/17 11/16/17 23:06 23:09 23:11 Temperature Pulse Rate 96 H 104 H 104 H Respiratory Rate Blood Pressure 171/88 Blood Pressure [Left] O2 Sat by Pulse 97 98 Oximetry 11/16/17 11/16/17 11/16/17 23:16 23:21 23:26 Temperature Pulse Rate 105 H 104 H 99 H Respiratory Rate Blood Pressure Blood Pressure [Left] O2 Sat by Pulse 98 98 98 Oximetry 11/16/17 11/16/17 11/17/17 23:31 23:36 00:00 Temperature Pulse Rate 102 H 98 H 98 H Respiratory Rate Blood Pressure 145/76 Blood Pressure 145/76 [Left] O2 Sat by Pulse 98 98 Oximetry 11/17/17 11/17/17 11/17/17 00:26 00:37 01:38 Temperature Pulse Rate 106 H 90 95 H Respiratory 18 Rate Blood Pressure 162/84 174/90 Blood Pressure 162/84 174/90 [Left] O2 Sat by Pulse 99 Oximetry 11/17/17 11/17/17 11/17/17 02:06 02:36 03:36 Temperature Pulse Rate 95 H 109 H 94 H Respiratory 18 18 Rate Blood Pressure 151/91 145/95 168/91 Blood Pressure 151/91 145/95 [Left] O2 Sat by Pulse Oximetry 11/17/17 11/17/17 04:06 04:37 Temperature Pulse Rate 94 H 94 H Respiratory Rate Blood Pressure 146/82 180/82 Blood Pressure [Left] O2 Sat by Pulse Oximetry - Exam Breasts: deferred Cardiovascular: Regular rate Lungs: Normal air movement Abdomen: Present: normal appearance, soft. Absent: distention, tenderness Uterus: Present: normal FHR: auscultation normal, category 2 (variables) Uterine Contraction Monitor Mode: External Cervical Dilatation: 0 Cervical Effacement Percentage: 0 station: -3 Uterine Contraction Pattern: Irregular Uterine Tone Measurement Phase: Resting Uterine Contraction Intensity: Mild Extremities: edema Deep Tendon Reflex Grade: Normal +2 - Labs Labs: Abnormal Labs 11/15/17 11/15/17 11/16/17 07:45 10:25 14:56 Creatinine 0.5 L Magnesium 4.00 H Lactate Dehydrogenase 201 H Urine WBC (Auto) 19.0 H U Epithel Cells (Auto) 23.0 H 11/16/17 11/17/17 21:38 02:59 Creatinine Magnesium 4.40 H 4.70 H Lactate Dehydrogenase Urine WBC (Auto) U Epithel Cells (Auto) Laboratory Results - last 24 hr 11/16/17 11/16/17 11/17/17 14:56 21:38 02:59 Magnesium 4.00 H 4.40 H 4.70 H
[2017-11-17] MEDS ORDERED: DEEP SEA NS PRN (05:02)
[2017-11-17] MEDS ORDERED: ZOFRAN IV PRN (06:18)
[2017-11-17] MEDS ORDERED: DILAUDID IV PRN ×2 (06:18)
--- NOTE | 2017-11-17 06:21 | Anesthesia Day of Surgery ---
Anesthesia Day of Surgery - Day of Surgery Patient Examined: Yes Patient H&P Reviewed: Yes Patient is NPO: Yes
--- NOTE | 2017-11-17 06:21 | Anesthesia Consultation ---
Anesthesia Consult and Med Hx Date of service: 11/17/17 - Airway Anesthetic Teeth Evaluation: Good ROM Head & Neck: Adequate Mental/Hyoid Distance: Adequate Mallampati Class: Class II - Pulmonary Exam CTA: Yes - Cardiac Exam Cardiac Exam: RRR - Pre-Operative Health Status ASA Pre-Surgery Classification: ASA3, Emergency Proposed Anesthetic Plan: Epidural, Spinal - Pulmonary Hx Asthma: No COPD: No Hx Pneumonia: No - Cardiovascular System Hx Hypertension: No - Central Nervous System Hx Seizures: No Hx Psychiatric Problems: No - Endocrine Hx Renal Disease: No Hx End Stage Renal Disease: No Hx Hypothyroidism: No Hx Hyperthyroidism: No - Hematic Hx Anemia: No Hx Sickle Cell Disease: No - Other Systems Hx Alcohol Use: No
--- NOTE | 2017-11-17 06:28 | Progress Note ---
Assessment and Plan - Patient Problems (1) 40 weeks gestation of Current Visit: Yes Status: Acute (2) Oligohydramnios Current Visit: Yes Status: Acute Qualifiers: Fetus number: single or unspecified fetus (3) Pre-eclampsia Onset Date: ~11/16/17 Current Visit: Yes Status: Acute Qualifiers: Trimester: third trimester Qualified Code(s): O14.93 - Unspecified pre- eclampsia, third trimester Plan to address problem: Worsening (4) GBS carrier Current Visit: Yes Status: Acute (5) Failed induction Current Visit: Yes Status: Acute Qualifiers: Failed induction of labor type: other Qualified Code(s): O61.8 - Other failed induction of labor Plan to address problem: Now with worsening PreE and change in baseline, concern for professing placental insufficiency, remote from delivery, recommend proceed with C/S. Findings, concerns, options and risks were discussed patient, Questions were encouraged and answered, consents reviewed and signed, she voiced understanding and agrees to proceed with delivery. Subjective - Subjective Date of service: 11/17/17 Principal diagnosis: IUP @ 41+2, IOL for oligo, Preeclampsia Interval history: Still no cervical change, day 3 IOL. Decelerations noted, she''s required 2 dose of hydralazine now with what appears to be a change in FHT's baseline. Patient reports: movement normal, contractions (cramping), no loss of fluid, no vaginal bleeding, no other (no MCCALL, visual changes or epigastric pain) Objective - Vital Signs Vital Signs: Vital Signs - 12hr 11/16/17 11/16/17 11/16/17 18:47 18:48 18:51 Temperature Pulse Rate 105 H 100 H 104 H Respiratory Rate Blood Pressure 171/90 168/91 Blood Pressure [Left] O2 Sat by Pulse 98 Oximetry 11/16/17 11/16/17 11/16/17 18:52 18:57 19:02 Temperature Pulse Rate 104 H 109 H 115 H Respiratory Rate Blood Pressure Blood Pressure [Left] O2 Sat by Pulse 97 97 98 Oximetry 11/16/17 11/16/17 11/16/17 19:07 19:12 19:17 Temperature Pulse Rate 113 H 116 H 115 H Respiratory Rate Blood Pressure Blood Pressure [Left] O2 Sat by Pulse 98 98 97 Oximetry 11/16/17 11/16/17 11/16/17 19:22 19:26 19:27 Temperature Pulse Rate 111 H 116 H 120 H Respiratory Rate Blood Pressure 160/104 Blood Pressure [Left] O2 Sat by Pulse 98 98 Oximetry 11/16/17 11/16/17 11/16/17 19:32 19:35 19:37 Temperature Pulse Rate 112 H 109 H 111 H Respiratory Rate Blood Pressure 169/80 Blood Pressure [Left] O2 Sat by Pulse 98 97 Oximetry 11/16/17 11/16/17 11/16/17 19:42 19:47 19:52 Temperature Pulse Rate 116 H 114 H 105 H Respiratory Rate Blood Pressure Blood Pressure [Left] O2 Sat by Pulse 98 98 98 Oximetry 11/16/17 11/16/17 11/16/17 19:57 20:00 20:02 Temperature 98.3 F Pulse Rate 114 H 104 H 117 H Respiratory 18 Rate Blood Pressure Blood Pressure 161/98 [Left] O2 Sat by Pulse 97 98 97 Oximetry 11/16/17 11/16/17 11/16/17 20:07 20:10 20:12 Temperature Pulse Rate 109 H 104 H 113 H Respiratory Rate Blood Pressure 161/98 Blood Pressure [Left] O2 Sat by Pulse 98 97 Oximetry 11/16/17 11/16/17 11/16/17 21:45 21:46 21:51 Temperature Pulse Rate 105 H 105 H 109 H Respiratory Rate Blood Pressure 170/84 Blood Pressure 170/84 [Left] O2 Sat by Pulse 97 97 Oximetry 11/16/17 11/16/17 11/16/17 21:56 22:01 22:06 Temperature Pulse Rate 108 H 105 H 108 H Respiratory Rate Blood Pressure Blood Pressure [Left] O2 Sat by Pulse 97 97 97 Oximetry 11/16/17 11/16/17 11/16/17 22:11 22:16 22:21 Temperature Pulse Rate 110 H 106 H 110 H Respiratory Rate Blood Pressure Blood Pressure [Left] O2 Sat by Pulse 97 98 96 Oximetry 11/16/17 11/16/17 11/16/17 22:24 22:26 22:31 Temperature Pulse Rate 107 H 107 H 104 H Respiratory Rate Blood Pressure 146/87 Blood Pressure [Left] O2 Sat by Pulse 93 97 97 Oximetry 11/16/17 11/16/17 11/16/17 22:51 22:56 23:01 Temperature Pulse Rate 103 H 101 H 104 H Respiratory Rate Blood Pressure Blood Pressure [Left] O2 Sat by Pulse 98 98 96 Oximetry 11/16/17 11/16/17 11/16/17 23:06 23:09 23:11 Temperature Pulse Rate 96 H 104 H 104 H Respiratory Rate Blood Pressure 171/88 Blood Pressure [Left] O2 Sat by Pulse 97 98 Oximetry 11/16/17 11/16/17 11/16/17 23:16 23:21 23:26 Temperature Pulse Rate 105 H 104 H 99 H Respiratory Rate Blood Pressure Blood Pressure [Left] O2 Sat by Pulse 98 98 98 Oximetry 11/16/17 11/16/17 11/17/17 23:31 23:36 00:00 Temperature Pulse Rate 102 H 98 H 98 H Respiratory Rate Blood Pressure 145/76 Blood Pressure 145/76 [Left] O2 Sat by Pulse 98 98 Oximetry 11/17/17 11/17/17 11/17/17 00:26 00:37 01:38 Temperature Pulse Rate 106 H 90 95 H Respiratory 18 Rate Blood Pressure 162/84 174/90 Blood Pressure 162/84 174/90 [Left] O2 Sat by Pulse 99 Oximetry 11/17/17 11/17/17 11/17/17 02:06 02:36 03:36 Temperature Pulse Rate 95 H 109 H 94 H Respiratory 18 18 18 Rate Blood Pressure 151/91 145/95 168/91 Blood Pressure 151/91 145/95 168/91 [Left] O2 Sat by Pulse Oximetry 11/17/17 11/17/17 11/17/17 04:06 04:37 05:11 Temperature 98.7 F Pulse Rate 94 H 94 H 95 H Respiratory 18 18 Rate Blood Pressure 146/82 180/82 142/76 Blood Pressure 146/82 180/82 [Left] O2 Sat by Pulse Oximetry 11/17/17 11/17/17 11/17/17 05:32 05:34 05:37 Temperature Pulse Rate 94 H 91 H 90 Respiratory Rate Blood Pressure 136/78 Blood Pressure [Left] O2 Sat by Pulse 100 81 L 99 Oximetry 11/17/17 11/17/17 11/17/17 05:42 05:47 05:52 Temperature Pulse Rate 93 H 94 H 82 Respiratory Rate Blood Pressure Blood Pressure [Left] O2 Sat by Pulse 100 100 74 L Oximetry - Labs Labs: Abnormal Labs 11/15/17 11/15/1711/16/18 07:45 10:25 14:56 Creatinine 0.5 L Magnesium 4.00 H Lactate Dehydrogenase 201 H Urine WBC (Auto) 19.0 H U Epithel Cells (Auto) 23.0 H 11/16/17 11/17/17 21:38 02:59 Creatinine Magnesium 4.40 H 4.70 H Lactate Dehydrogenase Urine WBC (Auto) U Epithel Cells (Auto) Laboratory Results - last 24 hr 11/16/17 11/16/17 11/17/17 14:56 21:38 02:59 Magnesium 4.00 H 4.40 H 4.70 H
[2017-11-17] MEDS ORDERED: REGLAN IV ONE (06:29)
[2017-11-17] MEDS ORDERED: BICITRA PO ONE (06:29)
[2017-11-17] MEDS ORDERED: PEPCID IV ONE (06:29)
[2017-11-17] MEDS ORDERED: ASTRAMORPH PF 10MG/10ML ONE (06:39)
[2017-11-17] MEDS ORDERED: ceFAZolin 2 GM in NACL 0.9% 100 ML IV ONE (06:39)
[2017-11-17] MEDS ORDERED: ANCEF/STERILE WATER 2 GM/20 ML 2 GM/20 ML SYRINGE IV ONE (06:45)
[2017-11-17] MEDS ORDERED: PITOCin/NS 20 UNIT/1000ML DRIP 20 UNITS/1,000 ML BAG IV SCH ×2 (07:00→11:00)
[2017-11-17] MEDS ORDERED: NACL 0.9% IR ONE (07:00)
[2017-11-17] MEDS ORDERED: WATER FOR IRRIG STERILE IR ONE (07:00)
[2017-11-17] MEDS ORDERED: SODIUM CHLORIDE FLUSH SYRINGE 10 ML IV PRN (07:00)
[2017-11-17] MEDS ORDERED: LACTATED RINGERS 1,000 ML IV SCH ×2 (07:00→10:18)
--- NOTE | 2017-11-17 08:23 | Operative Report ---
Operative Report Operative Report: Date: 11/17/2017 Preoperative diagnosis: 1. Intrauterine at 41 weeks 2. Preeclampsia 3. Oligohydramnios 4. Failed induction 5. Reassuring heart rate tracing 6. Morbid obesity Postoperative diagnosis: 1. Intrauterine at 41 weeks 2. Preeclampsia 3. Oligohydramnios 4. Failed induction 5. Reassuring heart rate tracing 6. Morbid obesity Procedure: Low uterine transverse incision for delivery Surgeon: Carine Benjamin MD Gold Blower: Elyse Watts CNM Anesthesia: Combined spinal epidural Anesthesiologist: Jose Alberto Moreno M.D. Estimated blood loss: 600 mL Urine out: 150 mL clear Findings: Live born male infant. Weight 9 lbs. 3 oz. Apgars 6 at 1 minute and 5 at 9 minutes. Uterus normal, tubes normal, ovaries normal. Procedure: After risk, benefits, complications, consequences and alternatives for this procedure were discussed with patient and consents were reviewed and signed, she was taken to the OR where combined spinal epidural anesthesia was placed. She was then placed in the left lateral tilt position, and prepped and draped in the usual sterile fashion. Timeout was performed, and an appropriate level of anesthesia was noted, a Pfannenstiel incision was made and extended to the fascia which was incised and extended in the lateral directions. The overlying fascia was sharply dissected away from the underlying rectus muscles in the superior and inferior directions. The midline was entered bluntly. The vesicouterine fold was incised and with blunt dissection the bladder flap was created. A transverse incision was made in the lower uterine segment and extended in superiolateral direction with finger fractionation. Meconium-stained fluid was noted. The was delivered from cephalic position with vacuum assistance. Only one application was required at 55 mmHg. Mouth and nose were bulb suctioned. Cord was doubly clamped and cut. The was given to /resuscitation team present. The placenta was manually extracted. The uterus was then exteriorized and cleared of any further products of conception or placental tissue. The incision was reapproximated using 0 Vicryl in a running interlocking stitch. Grossly normal uterus, tubes and ovaries were noted. Once hemostasis was noted , the uterus was allowed back into the pelvic cavity. The pelvis was irrigated with warm normal saline. Then attention was turned to the rectus muscles. The rectus muscles reapproximated using 0 Vicryl in a simple interrupted stitch x 3. Once hemostasis was noted, the fascia was reapproximated using 0 Vicryl running stitch fashion. The subcuticular adipose tissue was reapproximated using 0 Vicryl in interrupted simple stitches 3. Once hemostasis was noted skin incision was reapproximated using 4-0 Vicryl on a Joe needle in a subcuticular manner. Counts were correct 3. Patient tolerated procedure well state recovery room in stable condition.
[2017-11-17] MEDS: MAGNESIUM SULFATE 40GM/1000ML 40 GM/1,000 ML BAG IV SCH (08:50)
[2017-11-17] MEDS ORDERED: NEO SYNEPHRINE/NS Syringe(OR USE) IV ONE (10:00)
[2017-11-17] MEDS ORDERED: ZOFRAN ONE (10:00)
[2017-11-17] MEDS ORDERED: SODIUM CHLORIDE FLUSH SYRINGE 10 ML IV NR (10:18)
[2017-11-17] MEDS ORDERED: TUCKS PAD TP PRN (10:18)
[2017-11-17] MEDS ORDERED: TYLENOL PO PRN (10:18)
[2017-11-17] MEDS ORDERED: LANSINOH TP PRN (10:18)
[2017-11-17] MEDS ORDERED: NARCAN 0.4 MG/1 ML IV PRN (10:18)
[2017-11-17] MEDS ORDERED: TYLENOL PR PRN (10:18)
[2017-11-17] MEDS ORDERED: MORPHINE IV PRN (10:18)
[2017-11-17] MEDS ORDERED: ANCEF/NS 1 GM/50 ML 1 GM/50 ML BAG IV SCH (10:18)
[2017-11-17] MEDS: TORADOL IV PRN ×2 (10:34→20:32)
[2017-11-17] MEDS ORDERED: BENADRYL PO PRN (12:54)
[2017-11-17] MEDS ORDERED: BENADRYL IV ONE (14:00)
[2017-11-17] MEDS: ceFAZolin 1 GM in NACL 0.9% 20 ML IV SCH ×2 (16:05→23:34)
[2017-11-17 20:23] LABS: Hematocrit 31.6 % (30.3-42.9); Hemoglobin 10.7 gm/dl (10.1-14.3)
[2017-11-18] MEDS ORDERED: BOOSTRIX IM ONE (06:00)
[2017-11-18] MEDS: TORADOL IV PRN (07:17)
[2017-11-18] MEDS: NORMODYNE PO SCH ×2 (07:23→23:00)
[2017-11-18] MEDS: PERCOCET 5/325 PO PRN ×3 (09:52→22:23)
--- NOTE | 2017-11-18 10:48 | Progress Note ---
Assessment and Plan - Patient Problems (1) Status post primary low transverse section Current Visit: Yes Status: Acute Plan to address problem: Postoperative day #1. Patient without fever. Will ambulate in halls. We will continue routine postoperative care. Patient's postoperative hematocrit 31.6% (2) Failed induction Current Visit: Yes Status: Resolved Qualifiers: Failed induction of labor type: other Qualified Code(s): O61.8 - Other failed induction of labor (3) Pre-eclampsia Onset Date: ~11/16/17 Current Visit: Yes Status: Acute Qualifiers: Trimester: third trimester Qualified Code(s): O14.93 - Unspecified pre- eclampsia, third trimester Plan to address problem: We'll start the patient on labetalol some borderline blood pressures. Patient denies any headaches or visual disturbances Subjective - Subjective Date of service: 11/18/17 Principal diagnosis: IUP @ 41+2, IOL for oligo, Preeclampsia postop day 1 Patient reports: appetite normal, voiding normally, pain well controlled, flatus [place]: doing well Objective - Vital Signs Latest vital signs: Vital Signs Temp Pulse Resp BP BP Pulse Ox 11/18/17 08:25 98.3 F 100 H 20 129/73 11/18/17 07:23 108 H 149/91 11/18/17 07:17 18 11/18/17 06:13 108 H 20 149/91 92 11/18/17 02:40 165/85 11/18/17 00:51 98.0 F 20 149/91 11/18/17 00:50 100 H 11/17/17 22:30 98.5 F 90 20 150/80 11/17/17 20:34 98.5 F 104 H 20 153/90 96 11/17/17 20:32 18 11/17/17 18:01 98.1 F 107 H 18 149/87 11/17/17 16:23 135/83 11/17/17 16:21 100 H 98 11/17/17 16:15 108 H 98 11/17/17 16:14 98.1 F 105 H 18 149/87 95 11/17/17 15:00 98 F 93 H 18 149/89 97 11/17/17 14:18 98.7 F 116 H 18 137/80 11/17/17 12:45 74 98 11/17/17 12:44 97.7 F 73 18 120/68 98 11/17/17 12:37 114 H 97 Intake and Output 11/17/17 11/18/17 11/18/17 22:59 06:59 14:59 Intake Total 240 Output Total 1300 2400 Balance -1300 -2160 Intake: Intake, Free Water 240 Output: Urine 1300 2400 Indwelling Catheter 800 800 Uretheral ([place]) 500 1600 Other: Total, Output Amount 800 200 # Voids Indwelling Catheter 800 - Exam Breasts: Present: deferred Cardiovascular: Present: Regular rate Lungs: Present: Normal air movement Abdomen: Present: normal appearance, soft, tenderness (appropriate postop) Uterus: Present: firm, fundal height below umbilicus Extremities: Present: edema Deep Tendon Reflex Grade: Normal +2 Incision: Present: dry, dressed - Labs Labs: Abnormal lab results 11/17/17 11/17/17 11/18/17 Range/Units 15:30 20:10 02:12 Magnesium 5.30 H 4.80 H 4.80 H (1.7-2.3) mg/dL
[2017-11-18] MEDS: MOTRIN PO PRN ×2 (15:35→22:23)
[2017-11-19] MEDS: MOTRIN PO PRN ×4 (04:12→22:20)
[2017-11-19] MEDS: PERCOCET 5/325 PO PRN ×4 (04:13→22:20)
--- NOTE | 2017-11-19 07:30 | Post Anesthesia Evaluation ---
- Post Anesthesia Evaluation Patient Participated: Yes Airway Patent: Yes Stable Respiratory Function: Yes Nausea/Vomiting: No Temp > 96.8F: Yes Pain Manageable: Yes Adequeate Hydration: Yes Anesthesia Complications: No Block Receding Appropriately: Yes
--- NOTE | 2017-11-19 08:21 | Progress Note ---
Assessment and Plan A: 27y/o day 2 postop s/p primary c/s, voiding normally, ambulating without difficulty. b/p remain slightly elevated but trending down since start of labetalol BID. H&H stable 10.7/31.6. Incision D&I, some firm edema noted on panis over incision. P: continue postop pathway, increase activity as tolerated. Shower today, wound care discussed, continue support of . - Patient Problems (1) Pre-eclampsia Onset Date: ~11/16/17 Current Visit: Yes Status: Acute Qualifiers: Trimester: third trimester Qualified Code(s): O14.93 - Unspecified pre- eclampsia, third trimester (2) Status post primary low transverse section Current Visit: Yes Status: Acute Subjective - Subjective Date of service: 11/19/17 Principal diagnosis: Postop day #2 s/p primary c/s Patient reports: appetite normal, voiding normally, pain well controlled, ambulating normally, no dizzy ambulation, no nauseated : doing well, nursing well Objective - Vital Signs Latest vital signs: Vital Signs Temp Pulse Resp BP BP 11/19/17 01:43 97.5 F L 91 H 18 138/71 11/18/17 23:00 102 H 149/81 11/18/17 08:25 98.3 F 100 H 20 129/73 Intake and Output 11/18/17 11/19/17 11/19/17 23:59 07:59 15:59 Intake Total 480 Balance 480 Intake: Intake, Free Water 480 Other: # Voids Void 2 - Exam Breasts: Present: normal, Cardiovascular: Present: Regular rate Lungs: Present: Clear to auscultation, Normal air movement Abdomen: Present: normal appearance, soft Vulva: both: normal Uterus: Present: normal, firm, fundal height at umbilicus Extremities: Present: normal Incision: Present: normal, dry, edematous (edema noted above the incision on panis that hangs over incision. No brusing noted. ), intact
[2017-11-19] MEDS: NORMODYNE PO SCH ×2 (10:04→21:30)
[2017-11-19] MEDS: COLACE PO SCH (21:30)
--- NOTE | 2017-11-20 06:27 | Discharge Summary ---
Providers - Providers Date of Admission: 11/14/17 17:58 Date of discharge: 11/20/17 (pt agrees with d/c ) Attending physician: THERON JO 11/17/17 10:18 Consult to [employer] [CONS] Routine Reason For Exam: Primary care physician: THERON JO Hospitalization Reason for admission: induction of labor Delivery: Procedure: primary low transverse Episiotomy: none Laceration: none Incision: normal, dry, intact Other procedures: none complications: none Discharge diagnosis: IUP at term delivered [place] baby: male Hospital course: uncomplicated section Pt OOB to toilet. No c/o voiced. BP 120s/80s with an occasional 90 diastolic. Will d/c home on po Labetalol. FF below umb Lochia scant Incision D&I. Abd binder on. Doing well s/p section. P: d/c home today with instructions. RTO 1 week postop check, BP check and son's circ. RX provided. Precautions given. Condition at discharge: Good Disposition: [id number]-01 TO HOME OR SELFCARE - Discharge Diagnoses (1) Pre-eclampsia Status: Acute Qualifiers: Trimester: third trimester Qualified Code(s): O14.93 - Unspecified pre- eclampsia, third trimester Comment: d/c home on Labetalol po 200mg BID Call with [facility], blurred vision, chest pain. RTO 1 week BP check (2) delivery delivered Status: Acute Comment: RTO 1 week postop visit Plan - Discharge Medications Prescriptions: Ibuprofen [Motrin 800 MG tab] 800 mg PO TID PRN #30 tablet PRN Reason: Pain Labetalol [Normodyne TAB] 200 mg PO BID #60 tablet Lidocain2.5%/Prilocai2.5% [Emla] 5 gm TP ONCE #1 tube oxyCODONE /ACETAMINOPHEN [Percocet 5/325 mg] 1 - 2 tab PO Q4HR PRN #30 tablet PRN Reason: Pain - Provider Discharge Summary Activity: routine, no sex for 6 weeks, no heavy lifting 4 weeks, no strenuous exercise Diet: routine Instructions: routine Additional instructions: [] Smoking cessation referral if applicable(refer to patient education folder for contact #) [] Refer to [facility]'s [facility] Booklet Call your doctor immediately for: * Fever > 100.5 * Heavy vaginal bleeding ( >1 pad per hour) * Severe persistent headache * Shortness of breath * Reddened, hot, painful area to leg or breast * Drainage or odor from incision. * Keep incision clean and dry at all times and follow doctor's instructions regarding bathing/showering - Follow up plan Follow up: THERON JO MD [Primary Care Provider] - 7 Days (Congratulations! Please call [phone] to schedule your postoperative visit, your blood pressure check, and your son's circumcision in 1 week. Bring the EMLA cream with you to his visit. Do NOT use at home. Take medications as prescribed. Call with any headache not relieved with Tylenol, blurred vision, chest pain. Call with any concerns.)
[2017-11-20] MEDS: PERCOCET 5/325 PO PRN (06:45)
[2017-11-20] MEDS: MOTRIN PO PRN (06:45)
[2017-11-20] MEDS: NORMODYNE PO SCH (09:35)
[2017-11-20] MEDS: COLACE PO SCH (09:36)
[2017-11-20 09:37] VITALS: BP 154/91
== END 2017-11-20 12:35 | disposition home or self-care (01) | DRG 765 ==
LOC: LD 17:58 → OB 11-17 10:06
PROVIDERS: ADMIT Obstetrics & Gynecology; ATTEND Obstetrics & Gynecology
PROC: 10D00Z1 Extraction of Products of Conception, Low, Open Approach (ICD-10-PCS; principal; 2017-11-17)
DX: O41.03X0 Oligohydramnios, third trimester, not applicable or unspecified (principal); O14.93 Unspecified pre-eclampsia, third trimester; Z68.41 Body mass index [BMI] 40.0-44.9, adult; Z3A.41 41 weeks gestation of pregnancy; Z37.0 Single live birth; O99.824 Streptococcus B carrier state complicating childbirth; O99.214 Obesity complicating childbirth; E66.01 Morbid (severe) obesity due to excess calories; O76 Abnormality in fetal heart rate and rhythm complicating labor and delivery; O61.9 Failed induction of labor, unspecified
CPT/HCPCS: 36415; 81001; 82565; 83615; 83735; 84450; 84460; 84550; 85014; 85018; 85027; 86592; 86850; 86900; 86901; 99211; C1765; G0463; J0360; J0690; J1200; J1885; J2274; J2370; J2405; J2590; J2765; J3010; J3475; J7120